=== PATIENT | female | born 1975 | race Caucasian/White ===

== ENCOUNTER 2024-12-12 09:03 | Emergency (ER) | payer OTHER, SELFPAY ==
[2024-12-12] VITALS (8 sets, daily range): BP systolic 101–116; BP diastolic 59–67; PULSE 69–77; RESP 18; TEMP 37; O2SAT 93–96; BMI 33.5
[2024-12-12 10:20] LABS: Influenza A - CEPHEID Flu A NEGATIVE (NEGATIVE); Influenza B - CEPHEID Flu B NEGATIVE (NEGATIVE); Respiratory Syncytial Virus Negative (Negative)
[2024-12-12 10:21] LABS: COVID-19 CEPHEID 4-PLEX PCR Negative (Negative)
--- NOTE | 2024-12-12 10:31 | DI.RAD.S_ITS ---
PROCEDURE: XR CHEST 1V INDICATIONS: Cough TECHNIQUE: One view of the chest was acquired. COMPARISON: None. FINDINGS: Surgical changes and devices: None. Lungs and pleura: Ill-defined airspace opacities are noted in bilateral lower lung [place]. No pleural effusions or pneumothorax. Mediastinum: Mediastinal contours appear normal. Heart size is normal. Bones and chest wall: No suspicious bony lesions. Overlying soft tissues appear unremarkable. IMPRESSION: Ill-defined bilateral lower lobe patchy infiltrate/atelectasis. Dictated by: Rupesh Grossman M.D. on 12/12/2024 at 11:08 Approved by: Rupseh Grossman M.D. on 12/12/2024 at 11:11
--- NOTE | 2024-12-12 10:36 | ED_ITS ---
HPI - URI/Sore Throat General Chief Complaint: Fever Stated Complaint: Fever for 5days; cough and hard time breathing Time Seen by Provider: 12/12/24 10:12 Source: patient Mode of arrival: Ambulatory History of Present Illness HPI Narrative: Patient here with partner complaints cough cold congestion fever the past 4-5 days. Partner is being treated for a pneumonia. Was seen here this past weekend. Both started symptoms last Wednesday. Patient is a former smoker. No history asthma. No heart attack strokes or diabetes. Vital signs are reassuring. Clear lung sounds Related Data Previous Rx's Medication Instructions Recorded benzonatate 100 mg capsule 100 mg PO TID PRN cough #20 caps 12/12/24 doxycycline monohydrate 100 mg 100 mg PO BID #20 caps 12/12/24 capsule Review of Systems Review of Systems Narrative: GENERAL: Positive chills, fatigue, malaise, fever, sweats. HEENT: Negative sinus pain, ear pain, sore throat RESPIRATORY: Positive dyspnea, cough CARDIOVASCULAR: Negative chest pain, palpitations GASTROINTESTINAL: Negative nausea, vomiting, abdominal pain : Negative dysuria, frequency, hematuria MUSCULOSKELETAL: Negative muscle or bony pain SKIN: Negative rash, skin lesions NEUROLOGIC: Negative weakness, numbness ROS Unobtainable: All systems reviewed & are unremarkable except as noted in HPI and below Patient History Social History Smoking Status: Former smoker Smoking Status: Former smoker Exam Narrative Exam Narrative: GENERAL: in no distress, not toxic not dyspneic HEAD: Normocephalic. EYES: Pupils equal round ENT: Mucous membranes moist. NECK: Trachea midline. CARDIOVASCULAR: Regular rate and rhythm RESPIRATORY: Patient is speaking full sentences. No respiratory distress. Not dyspneic. There is decreased lung sounds at the bases. Slightly coarse lung sounds at the bases Breath sounds equal bilaterally. No wheezes, rales, or rhonchi. GASTROINTESTINAL: Abdomen soft, non-tender EXTREMITIES: No gross deformities. BACK: No flank tenderness. NEURO: AOx4. SKIN: Warm and dry PSYCH: Not anxious, is cooperative Initial Vital Signs Initial Vital Signs: Vital Signs Pulse Rate 75 12/12/24 09:10 Pulse Oximetry 95 12/12/24 09:10 Course Orders Ordered: Discontinued Medications Benzonatate (Benzonatate 100 Mg Capsule) 100 mg PO NOW ONE Stop: 12/12/24 10:33 Last Admin: 12/12/24 10:50 Dose: 100 mg Documented By: FRANCIA Doxycycline Hyclate (Doxycycline Hyclate 100 Mg Tablet) 100 mg PO NOW ONE Stop: 12/12/24 10:33 Last Admin: 12/12/24 10:50 Dose: 100 mg Documented By: FRANCIA Vital Signs Vital signs: Vital Signs - 8 hr 12/12/24 09:10 12/12/24 09:11 12/12/24 09:11 Temperature Pulse Rate 75 75 Respiratory Rate Blood Pressure 116/66 Pulse Oximetry 95 94 Oxygen Delivery Method 12/12/24 09:21 12/12/24 09:30 12/12/24 09:30 Temperature 98.6 F Pulse Rate 77 71 Respiratory Rate 18 Blood Pressure 116/66 104/59 L Pulse Oximetry 96 93 Oxygen Delivery Method Room Air MDM - URI/Sore Throat Lab Data Labs: Lab Results 12/12/24 Range/Units 09:15 SARS-CoV-2 (PCR) Negative (Negative) Influenza A (RT-PCR) Flu a negative (NEGATIVE) Influenza B (RT-PCR) Flu b negative (NEGATIVE) RSV (PCR) Negative (Negative) Imaging Data Chest x-ray: Radiologist's Impression: [place] [address] XRay Report Signed Patient: Momo Lane MR#: [id number] : 1975 Acct:[id number] Age/Sex: 49 / F Date of Service: 12/12/24 Loc: ED Accession Number: [id number] Procedure: XR chest 1V Ordering Provider: Edward Seals MD PROCEDURE: XR CHEST 1V INDICATIONS: Cough TECHNIQUE: One view of the chest was acquired. COMPARISON: None. FINDINGS: Surgical changes and devices: None. Lungs and pleura: Ill-defined airspace opacities are noted in bilateral lower lung [place]. No pleural effusions or pneumothorax. Mediastinum: Mediastinal contours appear normal. Heart size is normal. Bones and chest wall: No suspicious bony lesions. Overlying soft tissues appear unremarkable. IMPRESSION: Ill-defined bilateral lower lobe patchy infiltrate/atelectasis. Dictated by: Rupesh Grossman M.D. on 12/12/2024 at 11:08 Approved by: Rupesh Grossman M.D. on 12/12/2024 at 11:11 [facility] Narrative Medical decision making narrative: Patient here with partner complaints cough cold congestion fever the past 4-5 days. Partner is being treated for a pneumonia. Was seen here this past weekend. Both started symptoms last Sai. Patient is a former smoker. No history asthma. No heart attack strokes or diabetes. Vital signs are reassuring. Clear lung sounds After history and exam exam is reassuring. No blood work indicated. X-ray chest and respiratory panel ordered. Clinically likely pneumonia, doxycycline and Tessalon Perle ordered. Patient allergic to penicillin. [facility] Medical records reviewed: No recent visit for this complaint Differential considered: Includes but not limited to pneumonia bronchitis RSB rhino virus influenza COVID Lab Test results independently reviewed as above. Pertinent findings: Respiratory panel negative Imaging studies independently reviewed: Chest x-ray bibasilar infiltrate Treatments: Doxycycline Tessalon Perles Re-evaluations: 11:24 a.m.. Updated patient and partner results. X-ray is suggestive of pneumonia. They do agree for treatment for pneumonia. Return precautions reviewed. They desire discharge home. Discussion: Appropriate for discharge home exam is reassuring. Patient feeling better. Not requiring supplemental oxygen. Return precautions reviewed. Antibiotics were started. They desire discharge home. Diagnosis: Community-acquired pneumonia Discharge Plan Departure Patient Disposition: Home Clinical Impression: Community acquired pneumonia Qualifiers: Laterality: unspecified laterality Qualified Code(s): J18.9 - Pneumonia, unspecified organism Instructions: DI for Pneumonia -- Adult Activity Restrictions/Additional Instructions: You are being treated for pneumonia. Antibiotics have been started. Prescription has been sent to your pharmacy to continue. Keep well hydrated. Return if worse if any questions or concerns or any trouble breathing. See family doctor within a week for re-evaluation. Prescriptions: New benzonatate 100 mg capsule 100 mg PO TID PRN (Reason: cough) Qty: 20 0RF doxycycline monohydrate 100 mg capsule 100 mg PO BID Qty: 20 0RF Stand Alone Forms: Patient Portal/API/Survey, Work Release Note
[2024-12-12] MEDS: DOXYCYCLINE HYCLATE 100 MG TABLET PO (10:50)
[2024-12-12] MEDS: BENZONATATE 100 MG CAPSULE PO (10:50)
== END 2024-12-12 11:38 | disposition home or self-care (01) ==
PROVIDERS: Emergency Provider Emergency Medicine
DX: J18.9 Pneumonia, unspecified organism (principal); R06.00 Dyspnea, unspecified; Z87.891 Personal history of nicotine dependence
CPT/HCPCS: 0241U; 71045; 99283